=== PATIENT | male | born 1990 ===

== ENCOUNTER 2025-03-05 23:06 | Emergency (ER) | payer SELFPAY ==
[~2025-03-05] VITALS: Ht 177.8 cm; Wt 115.1 kg
[2025-03-05 23:10] VITALS: BP 137/82; TEMP 97.6; O2SAT 98
[2025-03-05] MEDS ORDERED: OLAN2.5T53 PO (23:16)
[2025-03-05] MEDS ORDERED: FLUO40CA PO (23:16)
== END 2025-03-06 00:24 | disposition left against medical advice (07) ==
LOC: M ED 23:06
DX: Z53.21 Procedure and treatment not carried out due to patient leaving prior to being seen by health care provider (principal)